=== PATIENT | female | born 2000 | race Caucasian/White ===

== ENCOUNTER 2022-04-02 12:38 | Emergency (ER) | payer OTHER ==
[~2022-04-02 12:38] MED LIST: NAPROXEN500 MG PO
[2022-04-02 13:22] LABS: BASOPHIL 0.5 % (0-2); EOSINOPHIL 1.9 % (0-5); HCT 41.8 % (37.0-47.0); HGB 14.3 g/dl (12.5-16.0); LYMPHOCYTE 41.6 % (15-48); MCHC 34.2 g/dL (32.0-36.0); MCV 84.8 fL (78.0-100.0); MONOCYTE 5.1 % (0-12); MPV 9.4 fL (6.0-9.5); NEUTROPHIL 50.7 % (41-80); NRBC 0; PLT 302 K/uL (150-400); RBC 4.93 M/uL (4.20-5.40); RDW 12.8 % (11.5-14.0); WBC 9.6 K/uL (4.0-10.5)
[2022-04-02 13:38] LABS: BUN/CREAT RATIO (CALC) 15.7 RATIO; CREATININE 0.7 mg/dL (0.51-0.95); POTASSIUM 3.6 mmol/L (3.5-5.1)
[2022-04-02 13:38] LABS: CORONAVIRUS 2019 SARS-COV-2 NEGATIVE (NEGATIVE); INFLUENZA A NAA NEGATIVE (NEGATIVE)
[2022-04-02 13:49] LABS: BILIRUBIN NEGATIVE (NEGATIVE); BLOOD NEGATIVE Ery/uL (NEGATIVE); CLARITY CLEAR (CLEAR); COLOR YELLOW (YELLOW); GLUCOSE (U) NORMAL (NORMAL); LEUKOCYTES NEGATIVE Leu/uL (NEGATIVE); NITRITE NEGATIVE (NEGATIVE); PROTEIN NEGATIVE (NEGATIVE); UROBILINOGEN 0.2 mg/dL (0.2-1.0)
== END 2022-04-02 14:55 | disposition home or self-care (01) ==
LOC: FER 12:38
PROVIDERS: Nurse Practitioner Family
DX: B34.9 Viral infection, unspecified (principal); Z20.822 Contact with and (suspected) exposure to COVID-19
CPT/HCPCS: 36415; 71045; 80048; 81003; 85025; 93971; J2405; J7030; U0002

== ENCOUNTER 2022-04-08 07:59 | Emergency (ER) | payer OTHER ==
[2022-04-08 09:06] LABS: CORONAVIRUS 2019 SARS-COV-2 NEGATIVE (NEGATIVE); INFLUENZA A NAA NEGATIVE (NEGATIVE)
[2022-04-08 09:52] LABS: BASOPHIL 0.4 % (0-2); EOSINOPHIL 0.5 % (0-5); HCT 41.6 % (37.0-47.0); HGB 14.1 g/dl (12.5-16.0); LYMPHOCYTE 17.7 % (15-48); MCH 28.9 pg (25.0-31.0); MCHC 33.9 g/dL (32.0-36.0); MCV 85.2 fL (78.0-100.0); MONOCYTE 3.6 % (0-12); MPV 9.3 fL (6.0-9.5); NEUTROPHIL 77.4 % (41-80); NRBC 0; PLT 272 K/uL (150-400); RBC 4.88 M/uL (4.20-5.40); RDW 12.5 % (11.5-14.0); WBC 10.9 K/uL (4.0-10.5)
[2022-04-08 10:10] LABS: BUN/CREAT RATIO (CALC) 21.5 RATIO; CREATININE 0.65 mg/dL (0.51-0.95); POTASSIUM 3.8 mmol/L (3.5-5.1)
[2022-04-08] MEDS ORDERED: ONDANSETRON ODT4 MG PO (10:24)
== END 2022-04-08 09:55 | disposition home or self-care (01) ==
LOC: FER 07:59
PROVIDERS: Emergency Medicine
DX: H50.9 Unspecified strabismus (principal); B34.9 Viral infection, unspecified; Z20.822 Contact with and (suspected) exposure to COVID-19
CPT/HCPCS: 36415; 70450; 71046; 80048; 85025; 96372; J1885; J2405; U0002